=== PATIENT | male | born 1950 | race Caucasian/White ===

== ENCOUNTER 2017-05-22 03:39 | Observation (INO) | payer MEDICARE, OTHER ==
[~2017-05-22] VITALS: Ht 175.3 cm; Wt 95.0 kg
[2017-05-22 06:53] LABS: BASOPHILS % 0.3 % (0.0-2.0); EOSINOPHILS # 0.1 10^3/ul (0.0-0.5); EOSINOPHILS % 1.7 % (0.0-7.0); HEMATOCRIT 32.2 % (42.0-52.0); HEMOGLOBIN 10.9 g/dl (14.0-18.0); LYMPHOCYTES # 0.9 10^3/ul (0.8-2.9); LYMPHOCYTES % 12.2 % (15.0-51.0); MEAN CORPUSCULAR HEMOGLOBIN 31.9 pg (29.0-33.0); MEAN CORPUSCULAR HGB CONC 33.9 g/dl (32.0-37.0); MEAN CORPUSCULAR VOLUME 94.2 fl (82.0-101.0); MEAN PLATELET VOLUME 9.4 fl (7.4-10.4); MONOCYTE # 0.4 10^3/ul (0.3-0.9); MONOCYTES % 6.1 % (0.0-11.0); NEUTROPHILS % 78.8 % (39.0-77.0); PLATELET COUNT 153 10^3/UL (140-415); RED BLOOD COUNT 3.42 10^6/ul (4.70-6.10); RED CELL DISTRIBUTION WIDTH 13.5 % (11.5-14.5)
[2017-05-22 07:18] LABS: ANION GAP 19 (8-16); BLOOD UREA NITROGEN 17 mg/dl (7-20); CALCIUM 8.5 mg/dl (8.4-10.2); CARBON DIOXIDE 26 mmol/L (21-31); CHLORIDE 102 mmol/L (97-110); CREATININE 0.84 mg/dl (0.61-1.24); GLUCOSE 90 mg/dl (70-220); POTASSIUM 4.6 mmol/L (3.5-5.1); SODIUM 142 mmol/L (135-144)
[2017-05-22 07:31] LABS: TROPONIN-I < 0.012 ng/ml (0.00-0.12)
--- NOTE | 2017-05-22 09:25 | RADRPT ---
PROCEDURE: XR Chest. CLINICAL INDICATION: Chest pain. Dizziness. TECHNIQUE: Single frontal view. COMPARISON: None. FINDINGS: The lungs are clear. The heart size is normal. There is no pleural effusion. There is no pneumothorax. IMPRESSION: 1. Normal chest radiograph. RPTAT: QQ .Murphy Franco MD, MD Date Time Electronically viewed and signed by .Murphy Franco MD, on 05/22/2017 08:19 .R/
--- NOTE | 2017-05-22 09:47 | ERA ---
ER Documentation Chief Complaint Date/Time DATE: 05/22/17 TIME: 09:44 Chief Complaint dizziness HPI 66-year-old male with a history of diabetes and hypertension presents the emergency department with lightheadedness and dizziness. Patient states that he awoke this morning and felt like he was in a pass out. It is unclear if he actually passed out. He did feel significantly lightheaded weak and nauseous. He reported no significant headache, focal weakness or numbness. He reported a nonspecific chest discomfort with no palpitations or shortness of breath prior to the episode. ROS All systems reviewed and are negative except as per history of present illness. FmHx Noncontributory for chief complaint Physical Exam Vitals Vital Signs Date Time Temp Pulse Resp B/P Pulse Ox O2 Delivery O2 Flow Rate FiO2 05/22/17 07:40 62 20 130/68 98 Room Air Physical Exam GENERAL: The patient is well developed and appropriate for usual state of health in no apparent distress HEENT: Pupils equal, round, and reactive to light. EOMI. There is no scleral icterus. NECK: C-spine is soft and supple, there is no meningismus. There is no cervical lymphadenopathy. LUNGS: Clear to auscultation bilaterally. There are no rales, wheezes or rhonchi. HEART: Regular rate and rhythm, no murmurs, clicks, rubs or gallops. ABDOMEN: Soft, non-tender, non-distended. There are bowel sounds in all four quadrants. No rebound or guarding. EXTREMITIES: There is no peripheral cyanosis or edema. No focal swelling or erythema. NEURO: The patient moves all four extremities with 5/5 strength. Cranial nerves II - XII are intact. Normal gait. Alert and oriented SKIN: There is no apparent rash or petechiae. HEME/LYMPHATIC: There is no evidence of excessive bruising or lymphedema. PSYCHIATRIC: The patient does not appear anxious or depressed. Result Diagram: 05/22/17 0617 05/22/17 0617 Results 24 hrs Laboratory Tests Test 05/22/17 06:17 White Blood Count 7.010^3/ul Red Blood Count 3.4210^6/ul Hemoglobin 10.9g/dl Hematocrit 32.2% Mean Corpuscular Volume 94.2fl Mean Corpuscular Hemoglobin 31.9pg Mean Corpuscular Hemoglobin Concent 33.9g/dl Red Cell Distribution Width 13.5% Platelet Count 85686^3/UL Mean Platelet Volume 9.4fl Neutrophils % 78.8% Lymphocytes % 12.2% Monocytes % 6.1% Eosinophils % 1.7% Basophils % 0.3% Nucleated Red Blood Cells % 0.0/100WBC Neutrophils # (Manual) 5.510^3/ul Lymphocytes # 0.910^3/ul Monocytes # 0.410^3/ul Eosinophils # 0.110^3/ul Basophils # 0.010^3/ul Nucleated Red Blood Cells # 0.010^3/ul Sodium Level 142mmol/L Potassium Level 4.6mmol/L Chloride Level 102mmol/L Carbon Dioxide Level 26mmol/L Anion Gap 19 Blood Urea Nitrogen 17mg/dl Creatinine 0.84mg/dl Glucose Level 90mg/dl Calcium Level 8.5mg/dl Troponin I < 0.012ng/ml Current Medications Medications (Trade) Dose Ordered Sig/Saeid Route PRN Reason Start Time Stop Time Status Last Admin Dose Admin IV Flush (NS 3 ml) 3 ml PER PROTOCOL IV 05/22/17 10:00 UNV Ondansetron HCl (Zofran Tab) 4 mg Q6H PRN PO NAUSEA AND/OR VOMITING 05/22/17 10:00 UNV Ondansetron HCl (Zofran Inj) 4 mg Q6H PRN IV NAUSEA AND/OR VOMITING 05/22/17 10:00 UNV Metoclopramide HCl (Reglan) 10 mg Q6H PRN IV NAUSEA AND/OR VOMITING 05/22/17 10:00 UNV Acetaminophen (Tylenol Tab) 650 mg Q6H PRN PO PAIN LEVEL 1-3 OR FEVER 05/22/17 10:00 UNV Acetaminophen/ Hydrocodone Bitart ([place] (5/325)) 1 tab Q6H PRN PO PAIN LEVEL 4-6 05/22/17 10:00 UNV Morphine Sulfate (morphine) 2 mg Q4H PRN IV PAIN LEVEL 7-10 05/22/17 10:00 UNV Docusate Sodium (Colace) 100 mg Q12H PRN PO CONSTIPATION 05/22/17 10:00 UNV Magnesium Hydroxide (Milk Of Mag) 30 ml DAILY PRN PO CONSTIPATION 05/22/17 10:00 UNV Bisacodyl (Dulcolax) 5 mg DAILY PRN PO CONSTIPATION 05/22/17 10:00 UNV Enoxaparin Sodium (Lovenox) 40 mg DAILY SC 05/23/17 09:00 UNV Procedures/MDM Patient was taken to a room, seen and evaluated. Comfort measures were initiated. Diagnostic tests were ordered and reviewed. 3 LEAD RHYTHM STRIP: Normal sinus rhythm without ectopy EK lead EKG reviewed by myself: Normal Sinus Rhythm Normal Aylett and intervals No ST elevation, depression, or T wave inversion Impression: Normal EKG RADIOLOGY: reviewed with the radiologist CONSULTATION: hospitalist was notified for admission REEVALUATION: Patient remained hemodynamically stable but continued to be lightheaded and symptomatic after discussing options with the patient, decision was made to admit for observation MEDICAL DECISION MAKIN-year-old with hypertension and diabetes presents the emergency department with lightheadedness and essentially a syncopal episode this morning associated with chest pain. Given his comorbid conditions including his diabetes and high blood pressure he is obviously at risk of this being cardiac in nature and will be admitted for cardiac observation and ruling out of myocardial infarction. At this time, patient shows no evidence of stroke or other high-risk neurologic concerns. Departure Diagnosis: Primary Impression: Chest pain Additional Impression: Syncope Condition: KRISHNA Sandoval May 22, 2017 09:47
[2017-05-22] MEDS ORDERED: ONDANSETRON 4 MG INJ IV PRN (10:00)
[2017-05-22] MEDS ORDERED: morphine 2 MG INJ IV PRN (10:00)
[2017-05-22] MEDS ORDERED: ACETAMINOPHEN 325 MG TAB PO PRN (10:00)
[2017-05-22] MEDS ORDERED: BISACODYL (EC) 5 MG TAB PO PRN (10:00)
[2017-05-22] MEDS ORDERED: MAGNESIUM HYDROXIDE 30ML CUP PO PRN (10:00)
[2017-05-22] MEDS ORDERED: HYDROCODONE/APAP (5/325) TAB PO PRN (10:00)
[2017-05-22] MEDS ORDERED: ONDANSETRON 4 MG TAB PO PRN (10:00)
[2017-05-22] MEDS ORDERED: DOCUSATE SODIUM 100 MG CAP PO PRN (10:00)
[2017-05-22] MEDS ORDERED: METOCLOPRAMIDE 10 MG INJ IV PRN (10:00)
[2017-05-22] MEDS ORDERED: NACL 0.9% 3 ML SYG IV SCH (10:00)
[2017-05-22] MEDS ORDERED: ASPI-664 PO (10:52)
[2017-05-22] MEDS ORDERED: CLOP75TA28 (10:53)
[2017-05-22] MEDS ORDERED: METF1000 (10:53)
[2017-05-22] MEDS ORDERED: CARV6.2579 (10:53)
[2017-05-22] MEDS ORDERED: TAMS0.4C2 (10:53)
[2017-05-22] MEDS ORDERED: CITA-104 (10:53)
[2017-05-22] MEDS ORDERED: ATOR80TA75 (10:53)
--- NOTE | 2017-05-22 11:12 | HP ---
Date/Time of Note Date/Time of Note DATE: 05/22/17 TIME: 10:56 Assessment/Plan VTE Prophylaxis VTE Prophylaxis Intervention: SCD's Assessment/Plan Assessment/Plan 66 yo M with pmhx obesity, CAD sp PCI, DM2 here with 3 presyncopal episodes in the past week. Etio unclear. Labs without compelling evidence of dehydration ( cr nl), or anemi (hgb not very low). Consider orthostasis from diabetic neuropathy, v cardiac arrhythmia v other. PLAN TTE, ACS r/o, orthostatic vitals cont home asa/plavix, bb, statin, flomax DM diet, hold metformin .SSI. check a1c DVT prophx HPI/ROS Admit Date/Time Admit Date/Time Hx of Present Illness CC recurrent episodes of presyncope HPI 66 yo M with pmhx CAD sp PCI, obesity, DM2 presents with 3 episodes of presyncope in the past 8 days. Pt reports 3 separate episodes in the evening where he suddenly feels lightheaded and sweaty and as though he is going to pass out, but he lies down and feels better within 30 minutes. Has not actually lost consciousness. Denies associated CP or SOB during these episodes. Reports less PO intake for the past few weeks 2/2 low appetite. Pt denies any recent changes to his meds. States he was previously on amlodipine in addition to the rest of his meds but this was stopped a few mos ago for unknown reasons. Has checked his BG during these episodes and it's usually between 70 and 120. Also has some tingling in his legs during these episodes. PMH/Family/Social Past Medical History obesity, DM2, HTN, HL, CAD, BPH, depression Past Surgical History hx PCI Social History lives in the community Exam/Review of Systems Vital Signs Vitals Vital Signs Date Time Temp Pulse Resp B/P Pulse Ox O2 Delivery O2 Flow Rate FiO2 05/22/17 07:40 62 20 130/68 98 Room Air Exam Exam nad EOMI MMM no mrg cta bl abd soft, obese no rashes no edema face symmetric, 5/5 strength bl U and LEs labs reviewed, Hgb ok, Cr nl, Trop neg x 1 EKG with NSR accucheck on arrival 70 Labs Result Diagram: 05/22/1761605/22/17616 Medications Medications Current Medications Ondansetron HCl (Zofran Tab) 4 mg Q6H PRN PO NAUSEA AND/OR VOMITING; Start at 10:00; Status UNV Ondansetron HCl (Zofran Inj) 4 mg Q6H PRN IV NAUSEA AND/OR VOMITING; Start at 10:00; Status UNV Metoclopramide HCl (Reglan) 10 mg Q6H PRN IV NAUSEA AND/OR VOMITING; Start at 10:00; Status UNV Acetaminophen (Tylenol Tab) 650 mg Q6H PRN PO PAIN LEVEL 1-3 OR FEVER; Start at 10:00; Status UNV Acetaminophen/ Hydrocodone Bitart ([place] (5/325)) 1 tab Q6H PRN PO PAIN LEVEL 4 -6; Start 05/22/17 at 10:00; Status UNV Morphine Sulfate (morphine) 2 mg Q4H PRN IV PAIN LEVEL 7-10; Start 05/22/17 at 10:00; Status UNV Docusate Sodium (Colace) 100 mg Q12H PRN PO CONSTIPATION; Start 05/22/17 at 10: 00; Status UNV Magnesium Hydroxide (Milk Of Mag) 30 ml DAILY PRN PO CONSTIPATION; Start at 10:00; Status UNV Bisacodyl (Dulcolax) 5 mg DAILY PRN PO CONSTIPATION; Start 05/22/17 at 10:00; Status UNV Enoxaparin Sodium (Lovenox) 40 mg DAILY SC ; Start 05/23/17 at 09:00; Status UNV NNAMDI COSTA MD May 22, 2017 11:06
[2017-05-22 14:48] VITALS: TEMP 98.4
[2017-05-22 15:15] VITALS: BP 156/68; PULSE 73; RESP 20
[2017-05-22 15:49] VITALS: BP 147/70; RESP 18
[2017-05-22 16:00] VITALS: PULSE 74
[2017-05-22] MEDS ORDERED: GLUCOSE GEL 15 GRAM TUBE PO PRN ×2 (16:00)
[2017-05-22] MEDS ORDERED: DEXTROSE 50% 50 ML SYRINGE IV PRN ×2 (16:00)
[2017-05-22] MEDS ORDERED: GLUCAGON 1 MG INJ IM PRN (16:00)
[2017-05-22] MEDS ORDERED: GLUCOSE GEL 15 GRAM TUBE BUCCAL PRN (16:00)
[2017-05-22] MEDS: INSULIN ASPART [NOVOLOG] 3 ML PEN SC SCH ×2 (17:14→20:44)
[2017-05-22 17:43] VITALS: Ht 175.3 cm; Wt 95.0 kg
[2017-05-22 18:23] LABS: CREATINE KINASE 75 IU/L (23-200)
[2017-05-22 19:06] LABS: CK-MB 1.13 ng/ml (0.0-2.4); TROPONIN-I < 0.012 ng/ml (0.00-0.12)
[2017-05-22 20:04] VITALS: BP 143/69; RESP 20
[2017-05-22] MEDS: ATORVASTATIN 80 MG TAB PO SCH (20:32)
[2017-05-22 20:36] VITALS: PULSE 71
[2017-05-22 23:52] LABS: CREATINE KINASE 67 IU/L (23-200)
[2017-05-23] VITALS (13 sets, daily range): BP systolic 132–153; BP diastolic 66–73; PULSE 65–71; RESP 17–20
[2017-05-23 00:06] LABS: TROPONIN-I < 0.012 ng/ml (0.00-0.12)
[2017-05-23] MEDS: ACCU-CHEK XX SCH (02:00)
[2017-05-23] MEDS: INSULIN ASPART [NOVOLOG] 3 ML PEN SC SCH ×4 (08:06→21:41)
[2017-05-23] MEDS: CITALOPRAM 20 MG TAB PO SCH (08:25)
[2017-05-23] MEDS: CLOPIDOGREL 75 MG TAB PO SCH (08:26)
[2017-05-23] MEDS: TAMSULOSIN (SR) 0.4 MG CAP PO SCH (08:26)
[2017-05-23] MEDS: ENOXAPARIN 40 MG/0.4 ML SYG SC SCH (08:28)
[2017-05-23] MEDS: ASPIRIN (EC) 81 MG TAB PO SCH (08:34)
[2017-05-23 08:47] LABS: BASOPHILS % 0.4 % (0.0-2.0); EOSINOPHILS # 0.2 10^3/ul (0.0-0.5); EOSINOPHILS % 3.1 % (0.0-7.0); HEMATOCRIT 35.6 % (42.0-52.0); HEMOGLOBIN 11.8 g/dl (14.0-18.0); LYMPHOCYTES # 1.2 10^3/ul (0.8-2.9); MEAN CORPUSCULAR HEMOGLOBIN 31.3 pg (29.0-33.0); MEAN CORPUSCULAR HGB CONC 33.1 g/dl (32.0-37.0); MEAN CORPUSCULAR VOLUME 94.4 fl (82.0-101.0); MEAN PLATELET VOLUME 9.6 fl (7.4-10.4); MONOCYTE # 0.4 10^3/ul (0.3-0.9); MONOCYTES % 7.6 % (0.0-11.0); NEUTROPHILS % 66.3 % (39.0-77.0); PLATELET COUNT 171 10^3/UL (140-415); RED BLOOD COUNT 3.77 10^6/ul (4.70-6.10); RED CELL DISTRIBUTION WIDTH 13.6 % (11.5-14.5); WHITE BLOOD COUNT 5.4 10^3/ul (4.8-10.8)
[2017-05-23 09:44] LABS: ALBUMIN 3.7 g/dl (3.3-4.9); ALBUMIN/GLOBULIN RATIO 1.23; BILIRUBIN,INDIRECT 0.3 mg/dl (0-1.1); BILIRUBIN,TOTAL 0.3 mg/dl (0.2-1.3); CREATININE 0.9 mg/dl (0.61-1.24); POTASSIUM 5.2 mmol/L (3.5-5.1); TOTAL PROTEIN 6.7 g/dl (6.1-8.1)
--- NOTE | 2017-05-23 10:14 | RADRPT ---
Echocardiogram Report Patient Name: GEORGE MAGDALENO Gender: Male Date: 1950 Study Date: 22-May-2017 Nursery Worker: ROBBY Roca Location: [facility] Ref. Physician: NNAMDI COSTA Quality: Good Procedures: Transthoracic echocardiogram with complete 2D, M-Mode, and doppler examination. Indications: Syncope. 2D/M Mode Doppler Measurement Value Normal Ranges Measurement Value Normal Ranges LVIDd 2D 4.2 3.5 - 5.6 cm AV Peak Julián 1.2 m/sec LVIDs 2D 2.5 2.1 - 4.1 cm AV Peak PG 6.0 mmHg FS 2D 41.7 % LVOT Peak Julián 1.0 m/sec LVPWd 2D 1.3 0.6 - 1.1 cm LVOT Peak PG 4.0 mmHg IVSd 2D 1.2 0.6 - 1.1 cm MV E Peak Julián 0.8 m/sec IVS/LVPW 2D 0.9 MV A Peak Julián 1.1 m/sec AoR Diam 2D 3.0 2.0 - 3.7 cm MV E/A 0.7 LA/Ao 2D 1 0 - 1 MV Decel Time 222 msec EDV 2D 74.1 cm3 MV E/A 0.7 ESV 2D 14.7 cm3 TR Peak Julián 2.3 m/sec LA Dimen 2D 3.4 2.3 - 4.0 cm TR Peak PG 22.0 mmHg RVSP 30.0 mmHg Findings Left Ventricle: Normal left ventricular systolic function. Normal left ventricular cavity size. Mild concentric left ventricular hypertrophy. Ejection fraction is visually estimated at 60 %. Tissue Doppler/Mitral Doppler indices are consistent with impaired relaxation (Stage I diastolic dysfunction). Right Ventricle: Normal right ventricular size. Normal right ventricular systolic function. Left Atrium: There is mild enlargement of left atrium. Right Atrium: The right atrium is normal in size. Mitral Valve: Normal appearance and function of the mitral valve with trace physiologic regurgitation. Aortic Valve: Normal appearance of the aortic valve. No significant aortic stenosis or insufficiency. Tricuspid Valve: Normal appearance of the tricuspid valve. Unable to obtain RVSP due to minimal presence of tricuspid regurgitation. There is trace tricuspid regurgitation. Pulmonic Valve: Normal pulmonic valve appearance. Pericardium: Normal pericardium with no significant pericardial effusion. Aorta: Normal aortic root. IVC: Normal size and normal respiratory collapse consistent with normal right atrial pressure. Conclusions 1.Normal left ventricular systolic function. Normal left ventricular cavity size. Mild concentric left ventricular hypertrophy. Ejection fraction is visually estimated at 60 %. Tissue Doppler/Mitral Doppler indices are consistent with impaired relaxation (Stage I diastolic dysfunction). 2.No significant valvular stenosis or regurgitation seen. 3.Unable to obtain RVSP due to minimal presence of tricuspid regurgitation. RA pressure estimated to be 3 mmHg. Electronically Signed By: Solomon Mansfield 23-May-2017 10:13:04 -0700 Patient Name: GEORGE MAGDALENO Study Date: 22-May-2017 [id number]
--- NOTE | 2017-05-23 14:17 | PN ---
Date/Time of Note Date/Time of Note DATE: 05/23/17 TIME: 14:14 Assessment/Plan VTE Prophylaxis VTE Prophylaxis Intervention: SCD's Lines/Catheters IV Catheter Type (from Nrs): Saline Lock Urinary Cath still in place: No Assessment/Plan Assessment/Plan 66 yo M with pmhx obesity, CAD sp PCI, DM2 here with 3 presyncopal episodes in the past week. Etio unclear. Labs without compelling evidence of dehydration ( cr nl), or anemi (hgb not very low). Consider orthostasis from diabetic neuropathy, v cardiac arrhythmia v other. PLAN TTE nl, ACS ruled out. cont tele orthostatic vitals cont home asa/plavix, bb, statin, flomax DM diet, hold metformin .SSI. a1c 7.2 DVT prophx Subjective 24 Hr Interval Summary Free Text/Dictation Pt reports he had a small episode yesterday afternoon but didn't tell anyone because it wasn't that bad Pt denies any chest pain Exam/Review of Systems Vital Signs Vitals Vital Signs Date Time Temp Pulse Resp B/P Pulse Ox O2 Delivery O2 Flow Rate FiO2 05/23/17 12:07 98.4 69 17 151/71 95 05/22/17 15:15 Room Air Intake and Output 05/22/17 05/22/17 05/23/17 14:59 22:59 06:59 Intake Total 400 ml 480 ml Balance 400 ml 480 ml Exam nad no mrg lungs clear abd soft no rashes TTE reviewed. ER vitals suggestive of orthostasis Results Result Diagram: 05/23/17 0708 05/23/17 0708 Results 24 hrs Laboratory Tests Test 05/22/17 15:48 05/22/17 17:10 05/22/17 17:30 05/22/17 20:40 Bedside Glucose 202 234 H 238 H Creatine Kinase 75 Creatine Kinase Index 1.5 Creatinine Kinase MB (Mass) 1.13 Troponin I < 0.012 Test 05/22/17 22:34 05/23/17 01:58 05/23/17 07:08 05/23/17 08:02 Creatine Kinase 67 Creatine Kinase Index 1.6 Creatinine Kinase MB (Mass) 1.10 Troponin I < 0.012 Bedside Glucose 189 164 White Blood Count 5.4 # Red Blood Count 3.77 L Hemoglobin 11.8 L Hematocrit 35.6 L Mean Corpuscular Volume 94.4 Mean Corpuscular Hemoglobin 31.3 Mean Corpuscular Hemoglobin Concent 33.1 Red Cell Distribution Width 13.6 Platelet Count 171 Mean Platelet Volume 9.6 Neutrophils % 66.3 Lymphocytes % 22.0 Monocytes % 7.6 Eosinophils % 3.1 Basophils % 0.4 Nucleated Red Blood Cells % 0.0 Neutrophils # (Manual) 3.6 Lymphocytes # 1.2 Monocytes # 0.4 Eosinophils # 0.2 Basophils # 0.0 Nucleated Red Blood Cells # 0.0 Sodium Level 141 Potassium Level 5.2 H Chloride Level 97 Carbon Dioxide Level 30 Anion Gap 19 H Blood Urea Nitrogen 16 Creatinine 0.90 Glucose Level 167 Hemoglobin A1c 7.2 H Calcium Level 9.0 Total Bilirubin 0.3 Direct Bilirubin 0.00 Indirect Bilirubin 0.3 Aspartate Amino Transf (AST/SGOT) 34 Alanine Aminotransferase (ALT/SGPT) 37 Alkaline Phosphatase 85 Total Protein 6.7 Albumin 3.7 Globulin 3.00 Albumin/Globulin Ratio 1.23 Triglycerides Level 115 Cholesterol Level 71 L LDL Cholesterol, Calculated 13 HDL Cholesterol 35 Cholesterol/HDL Ratio 2.0 Test 05/23/17 12:18 Bedside Glucose 231 H Medications Medications Current Medications Acetaminophen (Tylenol Tab) 650 mg Q6H PRN PO PAIN LEVEL 1-3 OR FEVER; Start at 10:00 Acetaminophen/ Hydrocodone Bitart ([place] (5/325)) 1 tab Q6H PRN PO PAIN LEVEL 4 -6 Last administered on 05/22/17 20:32; Admin Dose 1 TAB; Start 05/22/17 at 10: 00 Morphine Sulfate (morphine) 2 mg Q4H PRN IV PAIN LEVEL 7-10; Start 05/22/17 at 10:00 Docusate Sodium (Colace) 100 mg Q12H PRN PO CONSTIPATION; Start 05/22/17 at 10: 00 Magnesium Hydroxide (Milk Of Mag) 30 ml DAILY PRN PO CONSTIPATION; Start at 10:00 Bisacodyl (Dulcolax) 5 mg DAILY PRN PO CONSTIPATION; Start 05/22/17 at 10:00 Enoxaparin Sodium (Lovenox) 40 mg DAILY SC Last administered on 05/23/17 08:28 ; Admin Dose 40 MG; Start 05/23/17 at 09:00 Aspirin (Halfprin) 81 mg DAILY PO Last administered on 05/23/17 08:34; Admin Dose 81 MG; Start 05/23/17 at 09:00 Atorvastatin Calcium (Lipitor) 80 mg QHS PO Last administered on 05/22/17 20: 32; Admin Dose 80 MG; Start 05/22/17 at 21:00 Carvedilol (Coreg) 6.25 mg BID PO Last administered on 05/23/17 08:26; Admin Dose 6.25 MG; Start 05/22/17 at 21:00 Citalopram Hydrobromide (Celexa) 40 mg DAILY PO Last administered on 05/23/17 08:25; Admin Dose 40 MG; Start 05/23/17 at 09:00 Clopidogrel Bisulfate (plaVIX) 75 mg DAILY PO Last administered on 05/23/17 08 :26; Admin Dose 75 MG; Start 05/23/17 at 09:00 Tamsulosin HCl (Flomax) 0.4 mg DAILY PO Last administered on 05/23/17 08:26; Admin Dose 0.4 MG; Start 05/23/17 at 09:00 Diagnostic Test (Pha) (Accu-Chek) 1 ea 02 XX ; Start 05/23/17 at 02:00 Miscellaneous Information 1 ea NOTE XX ; Start 05/22/17 at 16:00 Glucose (Glutose) 15 gm Q15M PRN PO DECREASED GLUCOSE; Start 05/22/17 at 16:00 Glucose (Glutose) 22.5 gm Q15M PRN PO DECREASED GLUCOSE; Start 05/22/17 at 16: 00 Dextrose (D50w Syringe) 25 ml Q15M PRN IV DECREASED GLUCOSE; Start 05/22/17 at 16:00 Dextrose (D50w Syringe) 50 ml Q15M PRN IV DECREASED GLUCOSE; Start 05/22/17 at 16:00 Glucagon (Glucagen) 1 mg Q15M PRN IM DECREASED GLUCOSE; Start 05/22/17 at 16:00 Glucose (Glutose) 15 gm Q15M PRN BUCCAL DECREASED GLUCOSE; Start 05/22/17 at 16 :00 NNAMDI COSTA MD May 23, 2017 14:16
[2017-05-23] MEDS: ATORVASTATIN 80 MG TAB PO SCH (21:39)
[2017-05-24] VITALS (13 sets, daily range): BP systolic 108–166; BP diastolic 59–70; PULSE 61–81; RESP 18–20
[2017-05-24] MEDS: ACCU-CHEK XX SCH (02:42)
[2017-05-24 07:42] LABS: CALCIUM 9.2 mg/dl (8.4-10.2); CREATININE 0.83 mg/dl (0.61-1.24); POTASSIUM 4.9 mmol/L (3.5-5.1)
[2017-05-24] MEDS: CLOPIDOGREL 75 MG TAB PO SCH (08:52)
[2017-05-24] MEDS: ASPIRIN (EC) 81 MG TAB PO SCH (08:52)
[2017-05-24] MEDS: TAMSULOSIN (SR) 0.4 MG CAP PO SCH (08:52)
[2017-05-24] MEDS: CITALOPRAM 20 MG TAB PO SCH (08:52)
[2017-05-24] MEDS: INSULIN ASPART [NOVOLOG] 3 ML PEN SC SCH ×3 (08:56→18:00)
[2017-05-24] MEDS: ENOXAPARIN 40 MG/0.4 ML SYG SC SCH (08:57)
--- NOTE | 2017-05-24 17:51 | PDOCDIS ---
Discharge Instructions DIAGNOSIS Discharge Diagnosis Presyncope CONDITION Patient Condition: Good HOME CARE INSTRUCTIONS: Special Diet: 1800 ada ACTIVITY: Activity Restrictions: Avoid heavy lifting Do not Drive FOLLOW UP/APPOINTMENTS Follow-up Plan PCP 1wk keep track/ write down any activities that might make dizziness worse at home. if bleeding occurs, notify pcp on follow up. ZOHAIB GE MD May 24, 2017 17:51
--- NOTE | 2017-05-24 17:54 | DS ---
Date/Time of Note Date/Time of Note DATE: 05/24/17 TIME: 17:52 Discharge Summary Admission/Discharge Info Admit Date/Time May 22, 2017 at 12:03 Discharge Date/Time Discharge Diagnosis Presyncope Patient Condition: Good Procedures echo chest x-ray normal Hx of Present Illness CC recurrent episodes of presyncope HPI 66 yo M with pmhx CAD sp PCI, obesity, DM2 presents with 3 episodes of presyncope in the past 8 days. Pt reports 3 separate episodes in the evening where he suddenly feels lightheaded and sweaty and as though he is going to pass out, but he lies down and feels better within 30 minutes. Has not actually lost consciousness. Denies associated CP or SOB during these episodes. Reports less PO intake for the past few weeks 2/2 low appetite. Pt denies any recent changes to his meds. States he was previously on amlodipine in addition to the rest of his meds but this was stopped a few mos ago for unknown reasons. Has checked his BG during these episodes and it's usually between 70 and 120. Also has some tingling in his legs during these episodes. Hospital Course Evaluated/ managed for presyncope. Doubt TIA. No focal deficits. No known aggravating or relieving factors. Nonfocal. Sugar normal; BP dropped 10 with orthostatics, but are negative. Patient has chronic diabetes and is on medications for BPH. Consider autonomic dysfunction. No active blood loss no failure to thrive symptoms. Possibly hematuria but unable to confirm as it is normal at present. Follow with primary. Home Meds Active Scripts Aspirin* (Aspirin* EC) 81 Mg Tablet., 81 MG PO DAILY for 30 Days, #30 TAB Prov:NNAMDI COSTA MD 05/22/17 Reported Medications Atorvastatin* (Atorvastatin*) 80 Mg Tablet, #90 05/22/17 Citalopram Hydrobromide* (Citalopram Hydrobromide*) 40 Mg Tablet, #90 05/22/17 Tamsulosin Hcl* (Tamsulosin Hcl*) 0.4 Mg Cap.er.24h, #90 05/22/17 Metformin Hcl* (Metformin Hcl*) 1,000 Mg Tablet, #180 05/22/17 Carvedilol* (Carvedilol*) 6.25 Mg Tablet, #180 05/22/17 Clopidogrel Bisulfate (Clopidogrel) 75 Mg Tablet, #90 05/22/17 Primary Care Provider Not On Staff Doctor Pending Labs Laboratory Tests Test 05/23/17 21:35 05/24/17 02:39 05/24/17 06:15 05/24/17 08:36 Bedside Glucose 198mg/dL (70-220) 147mg/dL (70-220) 198mg/dL (70-220) Sodium Level 136mmol/L (135-144) Potassium Level 4.9mmol/L (3.5-5.1) Chloride Level 94mmol/L (97-110) Carbon Dioxide Level 31mmol/L (21-31) Anion Gap 16 (8-16) Blood Urea Nitrogen 19mg/dl (7-20) Creatinine 0.83mg/dl (0.61-1.24) Glucose Level 178mg/dl (70-220) Calcium Level 9.2mg/dl (8.4-10.2) Test 05/24/17 12:44 05/24/17 17:16 Bedside Glucose 234mg/dL (70-220) 140mg/dL (70-220) ZOHAIB GE MD May 24, 2017 17:54
== END 2017-05-24 19:38 | disposition home or self-care (01) ==
LOC: E/R 03:39 → INTOOBSV 12:03 → MS4 12:03
PROVIDERS: ADMIT Internal Medicine; ATTEND Internal Medicine
DX: R55 Syncope and collapse (principal); R07.9 Chest pain, unspecified; E11.9 Type 2 diabetes mellitus without complications; I10 Essential (primary) hypertension; I25.10 Atherosclerotic heart disease of native coronary artery without angina pectoris; Z98.61 Coronary angioplasty status; E66.9 Obesity, unspecified; Z68.30 Body mass index [BMI] 30.0-30.9, adult; E78.5 Hyperlipidemia, unspecified; F32.9 Major depressive disorder, single episode, unspecified
CPT/HCPCS: 71010; 80048; 80053; 80061; 82550; 82553; 82962; 83036; 84484; 85025; 93005; 93306; 99285; G0378; J1650; J1815